=== PATIENT | male | born 1975 | race Caucasian/White ===

== ENCOUNTER 2018-10-19 13:37 | Emergency (ER) | payer MEDICARE ==
[2018-10-19 13:54] VITALS: O2SAT 99
--- NOTE | 2018-10-19 14:06 | ERPHSYRPT ---
- History of Present Illness Time Seen by Provider: 10/19/18 13:55 Source: patient Exam Limitations: no limitations Patient Subjective Stated Complaint: states was moving a piano and it slipped catching third digit right hand between piano and concrete floor. Triage Nursing Assessment: ambulated to room per self. skin w/d, color normal, resp easy. has large flap lac to end of third digit right hand with moderate bleeding. finger soaked in hibiclens and saline. Physician History: 43-year-old white male arrives with complaint of a crush injury/laceration to his right distal third finger. Patient states this occurred just prior to arrival he apparently was moving a p.m. on slipped catching his right third finger between a pin on the concrete floor. He has a large flap laceration to his right third finger he has full range of motion to his right third finger sensation intact to right third finger. Past medical history includes diabetes type 2, hypothyroidism, high blood pressure, hyper cholesterolemia past surgical history includes vascular surgery , lymph nodes, and carpal tunnel . . . Occurred: just prior to arrival Method of Injury: direct blow (caught finger between piano and concrete floor) Quality: constant Severity of Pain-Max: mild Severity of Pain-Current: mild Extremities Pain Location: 3rd finger: right Modifying Factors: Improves With: other (laceration right third finger) Associated Symptoms: No back pain, No chills, No chest discomfort, No chest pain , No dyspnea, No fever, No jaw pain, No nausea, No neck pain, No sweating, No short of breath, No vomiting Allergies/Adverse Reactions: No Known Drug Allergies Allergy (Unverified 10/19/18 13:53) Home Medications: Clopidogrel Bisulfate [Clopidogrel] 75 mg PO DAILY 10/19/18 [History] Insulin Aspart [NovoLOG Insulin] 1 unit SQ UD 10/19/18 [History] Insulin Glargine,Hum.rec.anlog [Basaglar Kwikpen U-100] 100 unit SQ UD 10/19/18 [History] Levothyroxine Sodium 50 Mcg [Synthroid 50 Mcg] 50 mcg PO DAILY 10/19/18 [ History] Losartan Potassium 50 mg [Cozaar 50 MG] 50 mg PO DAILY 10/19/18 [History] Pravastatin Sodium [Pravachol] 20 mg PO DAILY 10/19/18 [History] Hx Tetanus, Diphtheria Vaccination/Date Given: No Hx Influenza Vaccination/Date Given: Yes Hx Pneumococcal Vaccination/Date Given: No - Review of Systems Constitutional: No Fever, No Chills Eyes: No Symptoms Ears, Nose, & Throat: No Symptoms Respiratory: No Cough, No Dyspnea Cardiac: No Chest Pain, No Edema, No Syncope Abdominal/Gastrointestinal: No Abdominal Pain, No Nausea, No Vomiting, No Diarrhea Genitourinary Symptoms: No Dysuria Musculoskeletal: Other (crush injury right third finger) Skin: Other (large flap laceration right third finger) Neurological: No Dizziness, No Focal Weakness, No Sensory Changes Psychological: No Symptoms Endocrine: No Symptoms All Other Systems: Reviewed and Negative - Past Medical History Pertinent Past Medical History: Yes Cardiac History: Hypertension Endocrine Medical History: Diabetes Type II, Hypothyroidism - Past Surgical History Past Surgical History: Yes Cardiac: Vascular Surgery Other Surgical History: lymph node, carpal tunnel, abscess - Social History Smoking Status: Current every day smoker How long have you smoked: 27 Drug Use: none Patient Lives Alone: No - Nursing Vital Signs Nursing Vital Signs: Initial Vital Signs Temperature 97.9 F 10/19/18 13:45 Pulse Rate 88 10/19/18 13:45 Respiratory Rate 16 10/19/18 13:45 Blood Pressure 145/83 10/19/18 13:45 O2 Sat by Pulse Oximetry 99 10/19/18 13:45 Pain Scale Pain Intensity 0 - Physical Exam General Appearance: alert Eyes, Ears, Nose, Throat Exam: moist mucous membranes Neck Exam: non-tender, supple Cardiovascular/Respiratory Exam: chest non-tender, normal breath sounds, regular rate/rhythm, no respiratory distress Abdominal Exam: non-tender, No guarding Back Exam: normal inspection, No vertebral tenderness Shoulder Exam: normal inspection, non-tender, no evidence of injury, normal ROM Elbow/Forearm Exam: normal inspection, non-tender, no evidence of injury, normal ROM Wrist Exam: normal inspection, non-tender, no evidence of injury, normal ROM Hand Exam: No normal inspection (patient with edema to right third finger distally volar surface flap laceration right third finger distally volar surface good capillary refill right third finger sensation intact right third finger full range of motion right third finger) DTR - Upper Extremity Exam: tricep (R): 2+, tricep (L): 2+ Neuro/Tendon Exam: normal sensation, normal motor functions Mental Status Exam: alert, oriented x 3, cooperative Skin Exam: other (large flap laceration right third finger volar surface distally. 6 cm flap laceration U-shaped right third finger volar surface) SpO2 Interpretation: normal (99%) SpO2: 99 - Course Nursing assessment & vital signs reviewed: Yes - Radiology Exams Right Other X-ray Interpretation: Discussed w/ radiologist (x-ray right third finger: Impression: Nondisplaced tuft fracture with soft tissue swelling. No other bony , articular, or soft tissue abnormalities.) Ordered Tests: Active Orders 24 hr Category Date Time Status Prepare for Sutures STAT Care 10/19/18 14:02 Active Sutures STAT Care 10/19/18 14:02 Active Wound Care STAT Care 10/19/18 14:02 Active FINGER(S) Stat Exams 10/19/18 14:17 Completed Medication Summary Discontinued Medications Generic Name Dose Route Start Last Admin Trade Name Freq PRN Reason Stop Dose Admin Bacitracin Zinc 0.9 gm 10/19/18 14:02 10/19/18 14:27 Baciguent Packet TP 10/19/18 14:03 0.9 gm STAT ONE Administration Bacitracin Zinc Confirm 10/19/18 14:17 Baciguent Packet Administered 10/19/18 14:18 Dose 1 gm .ROUTE .STK-MED ONE Diphtheria/Tetanus/Acell Pertussis 0.5 ml 10/19/18 14:02 10/19/18 14:26 Adacel Vial IM 10/19/18 14:03 0.5 ml .ONCE ONE Administration Diphtheria/Tetanus/Acell Pertussis Confirm 10/19/18 14:18 Adacel Vial Administered 10/19/18 14:19 Dose 0.5 ml IM .STK-MED ONE - Progress Progress: improved Progress Note: 10/19/18 14:[address] right third finger using 1% lidocaine Laceration right third finger sterilely scrubbed by nurse. 10/19/18 15:32 Laceration repair, 6 cm U-shaped laceration right third distal finger. Laceration sterilely prepped and draped. Digital block as noted above. Laceration repaired using 13 5.0 Prolene interrupted sutures. Sterile dressing applied. The patient given Keflex 500 mg orally. Will send patient home with [place] and a prescription for Keflex. Patient to followup with Dr. Carroll or his family . [facility] or in the morning schedule followup. - Departure Departure Disposition: Home Clinical Impression: crush injury right third finger, Flap laceration right third finger, open fracture right third finger Condition: Fair Critical Care Time: No Referrals: GUIDO KELLER [Primary Care Provider] - Additional Instructions: Return home. Keep area clean and dry. Bacitracin to area until healed. Keflex 500 mg orally every 6 hours for 7 days. [place] as prescribed. Followup with Dr. Carroll or your family call when you get home or in the morning to schedule appointment. Return for acute distress severe symptoms or for any problems. Prescriptions: Hydrocodone/APAP 5-325 Tab^^^ [[place] 5-325 Tablet^^^] 1 tab PO Q6HPRN PRN #10 tablet MDD 6 PRN Reason: finger pain Cephalexin Mh 500 mg [Keflex 500 mg] 500 mg PO Q6H #28 capsule
[2018-10-19] MEDS ORDERED: BACIGUENT PACKET ONE (14:17)
[2018-10-19] MEDS ORDERED: Adacel Vial IM ONE (14:18)
[2018-10-19] MEDS: Adacel Vial IM ONE (14:26)
[2018-10-19] MEDS: BACIGUENT PACKET TP ONE (14:27)
--- NOTE | 2018-10-19 14:35 | XRAY ---
Indication: Pain/laceration following crush injury. Comparison: None 3 views of the right 3rd finger demonstrates nondisplaced tuft fracture with soft tissue swelling. No other bony, articular, or soft tissue abnormalities.
[2018-10-19] MEDS ORDERED: KEFLEX 500 MG ONE (15:33)
[2018-10-19] MEDS: KEFLEX 500 MG PO ONE (15:34)
[2018-10-19 15:45] VITALS: BP 154/72; PULSE 74
== END 2018-10-19 15:52 | disposition home or self-care (01) ==
LOC: ED 13:37
DX: S61.212A Laceration without foreign body of right middle finger without damage to nail, initial encounter (principal); W23.1XXA Caught, crushed, jammed, or pinched between stationary objects, initial encounter; Y93.89 Activity, other specified; E11.9 Type 2 diabetes mellitus without complications; Z79.4 Long term (current) use of insulin; E03.9 Hypothyroidism, unspecified; E78.00 Pure hypercholesterolemia, unspecified; I10 Essential (primary) hypertension
CPT/HCPCS: 12002; 73140; 90471; 90715; 99284; A9270-GY

== ENCOUNTER 2025-03-04 11:56 | Emergency (ER) | payer MEDICARE | END 2025-03-04 12:05 | disposition left against medical advice (07) | LOC: ED 11:56 | DX: Z53.21 Procedure and treatment not carried out due to patient leaving prior to being seen by health care provider (principal) ==